=== PATIENT | female | born 1995 | race Caucasian/White ===

== ENCOUNTER → 2018-04-27 | Outpatient (CLI) | payer OTHER ==
[~2018-04-27] MED LIST: BCP; CIPR500 PO; HYDACE5 PO; PHENA200 PO; PROM25 PO; RXHYDACE PO
== END ==
LOC: LAB SHORT 11:57 → LAB 11:57
PROVIDERS: Nurse Practitioner
DX: K13.0 Diseases of lips (principal)
CPT/HCPCS: 86694; 86695; 86696

== ENCOUNTER 2018-05-08 08:21 | Emergency (ER) | payer OTHER ==
[~2018-05-08] VITALS: Ht 162.6 cm; Wt 67.1 kg
[2018-05-08] MEDS ORDERED: Abreva2 GM TOP (10:45)
[2018-05-08] MEDS ORDERED: Valtrex1000 MG PO (10:45)
[2018-05-08] MEDS ORDERED: Norco 5-325 Ta1 EACH PO (10:45)
== END 2018-05-08 10:52 | disposition home or self-care (01) ==
LOC: ER 08:21
DX: B00.89 Other herpesviral infection (principal); Z79.899 Other long term (current) drug therapy
CPT/HCPCS: 99283